=== PATIENT | female | born 1950 | race Caucasian/White ===

== ENCOUNTER 2021-05-08 03:25 | Outpatient (CLI) | payer MEDICARE, OTHER, SELFPAY ==
[2021-05-10 15:55] LABS: TB Interpretation Negative (Negative)
== END 2021-05-08 03:26 | disposition home or self-care (01) ==
LOC: LBO 03:25
PROVIDERS: PCP Nurse Practitioner Family; Visit Provider Student in an Organized Health Care Education/Training Program
DX: R91.8 Other nonspecific abnormal finding of lung field (principal)
CPT/HCPCS: 36415; 86480

== ENCOUNTER 2021-08-14 01:03 | Outpatient (CLI) | payer MEDICARE, SELFPAY ==
--- NOTE | 2021-08-14 07:00 | DI.CT_ITS ---
Exam(s) CT CHEST WO EXAM: CT CHEST WO CLINICAL HISTORY: Previous pulmonary nodules seen at [facility],COPD,R91.8,J44.9. TECHNIQUE: Multi planar reconstructions were performed. CONTRAST MATERIAL: None COMPARISON: No exams were available for comparison FINDINGS: CHEST: LUNGS: There is bilateral hyperinflation. There is scarring in both lung apices and sub apical regio ns, not associated with overlying rib destruction. There is sub apical pleural based densities in th e posterior aspect of both upper lobes, non cavitated and not associated with rib destruction. There is a nodular infiltrate measuring 10 x 9 millimeters in the left lower lobe superior segment. There is a 7 by 7 millimeter nodule contiguous with the anterior aspect of the major fissure in the apical posterior segment of the left upper lobe. Lower down in the left lung there are benign-appearing pl eural based markings in the posterior basal segment of the left lower lobe and in the inferior lingul ar segment. No pleural effusion. In the opposite-right lung there is a small spiculated nodular infiltrate in the superior segment of the right lower lobe measuring 7 x 6 millimeters. Benign-appearing increased markings in the superio r aspect of the superior segment of the right lower lobe are also noted. No other right lung finding s. No pleural effusion. There are no significant focal findings in the trachea and mainstem bronchi. MEDIASTINUM: There is a moderate size retrocardiac hiatal hernia. There is no obvious hilar nor medi astinal adenopathy. Visualized thyroid unremarkable.No obvious axillary adenopathy CARDIAC: Heart size is normal. There is a small pericardial effusion anteriorly. Maximum thickness of the pericardial effusion is 7 millimeters.There is no coronary artery calcification. Caliber of t thoracic aorta is within normal limits. VISUALIZED UPPER ABDOMEN:No adrenal masses. No splenomegaly. Small 4 millimeter calcification noted in the lateral cortex of the left kidney upper pole region, probably a nonobstructive calculus. The entire kidneys are not included in the field of view here. OSSEOUS: No significant osseous lesions.. IMPRESSION: 1. Significant bilateral lung findings as described above, not associated with pleural effusions nor obvious intrathoracic adenopathy. The next step should be to acquire the prior outside study for com parison purposes. An addendum will follow if these are received. Nevertheless, close follow-up of t [facility] findings is recommended. RADIATION DOSE DELIVERED: 345.7mGy.cm Total DLP DATA REPOSITORY: All CT scans at this facility are submitted to the National Radiology Data Registry (NRDR) Dose Index Registry (DIR) with the [employer] ([employer]). RADIATION OPTIMIZATION: All CT scans at this facility use at least one of these dose optimization te chniques: automated exposure control; mA and/or kV adjustment per patient size (includes targeted exa ms where dose is matched to clinical indication); or iterative reconstruction.
== END 2021-08-14 01:23 ==
PROVIDERS: PCP Nurse Practitioner Family; Visit Provider Student in an Organized Health Care Education/Training Program
DX: J44.9 Chronic obstructive pulmonary disease, unspecified (principal); R91.8 Other nonspecific abnormal finding of lung field
CPT/HCPCS: 71250

== ENCOUNTER → 2023-09-09 09:31 | Outpatient (BNVA) | payer MEDICARE, SELFPAY | PROVIDERS: Visit Provider Physician Assistant Surgical | DX: J44.9 Chronic obstructive pulmonary disease, unspecified (principal); Z79.51 Long term (current) use of inhaled steroids; Z79.899 Other long term (current) drug therapy; R91.8 Other nonspecific abnormal finding of lung field; Z87.891 Personal history of nicotine dependence | CPT/HCPCS: 99214 ==

== ENCOUNTER → 2023-12-10 07:39 | Outpatient (BNVA) | payer MEDICARE, SELFPAY | PROVIDERS: Visit Provider Physician Assistant Surgical | DX: J44.9 Chronic obstructive pulmonary disease, unspecified (principal); R91.8 Other nonspecific abnormal finding of lung field; R53.83 Other fatigue | CPT/HCPCS: 99214 ==

== ENCOUNTER 2023-12-10 09:56 | Outpatient (CLI) | payer MEDICARE, SELFPAY ==
[2023-12-10 08:53] LABS: Abs Immature Grans 0.02 10^3/uL (0.0-0.06); Absolute Basophil Count 0.06 10^3/uL (0.0-0.2); Absolute Eosinophil Count 0.13 10^3/uL (0.0-0.7); Absolute Lymphocyte Count 1.41 10^3/uL (1.2-3.4); Absolute Monocyte Count 0.54 10^3/uL (0.1-0.8); Basophils % 0.7; Eosinophils % 1.5; HCT 39.5 % (36.0-46.0); HGB 12.3 g/dL (11.2-15.7); Immature Grans % 0.2; Lymphocytes % 16.7; MCH 27.5 pg (27.0-33.0); MCHC 31.1 % (32.0-36.0); MCV 88 fL (80-95); MPV 8.4 fL (8.0-11.0); Monocytes % 6.4; Neutrophils % 74.5; Platelet Count 387 10^3/uL (130-400); RBC 4.48 10^6/uL (3.93-5.22); RDW 15.8 % (11.7-14.6); RDW-SD 51.2 fL; WBC 8.46 10^3/uL (4.4-10.8)
[2023-12-10 09:18] LABS: ALT 15 U/L (14-59); AST 15 U/L (15-37); Albumin 3.3 g/dL (3.4-5.0); Alkaline Phosphatase 89 U/L (46-116); Anion Gap 9.3 mmol/L (3-11); BUN 7 mg/dL (7-18); Bilirubin, Total 0.4 mg/dL (0.2-1.0); CO2 29.7 mmol/L (21.0-32.0); CREATININE 0.9 mg/dL (0.55-1.02); Calcium 10.3 mg/dL (8.5-10.1); Chloride 103 mmol/L (98-107); Estimated GFR 68.35 (mL/min/1.73m2); Glucose 124 mg/dL (74-106); Magnesium 1.9 mg/dL (1.8-2.4); Potassium 3.8 mmol/L (3.5-5.1); Sodium 142 mmol/L (136-145); TSH (W/Ref FT4) 1.69 uIU/mL (0.36-3.74); Total Protein 7.8 g/dL (6.4-8.2)
== END 2023-12-10 09:57 | disposition home or self-care (01) ==
LOC: LBO 10:01
PROVIDERS: Visit Provider Physician Assistant Surgical
DX: J44.9 Chronic obstructive pulmonary disease, unspecified (principal); R53.83 Other fatigue
CPT/HCPCS: 36415; 80053; 99214; 83735; 84443; 85025

== ENCOUNTER 2023-12-24 03:18 | Outpatient (CLI) | payer MEDICARE, SELFPAY ==
[2023-12-24] MEDS: Levalbuterol HFA 15 GM INH 4 PUFF IH (14:12)
[2023-12-24] MEDS: Inhaler, Assist Device 1 EACH MC (14:12)
--- NOTE | 2023-12-24 14:46 | W.PFT ---
Date of service: 12/24/23 Time of Service: 12:43 Pulmonary Function Test Result Indications: COPD Interpretation Spirometry: There is very severe airflow limitation. No bronchodilator response. FVC is low. Lung Volumes: There is hyperinflation and air trapping Diffusion Capacity: Unable to perform DLCO due to dyspnea Airway Pressure: Increased airways resistance Impression Very severe airflow obstruction. FVC is low due to severe obstruction. There is air trapping present. Clinical Correlation therefore is recommended.
--- NOTE | 2023-12-25 11:10 | W.PFT ---
Pulmonary Function Test Result Clinical Correlation therefore is recommended.
== END 2023-12-24 03:19 | disposition home or self-care (01) ==
LOC: RT 03:18
PROVIDERS: Visit Provider Student in an Organized Health Care Education/Training Program
DX: J44.9 Chronic obstructive pulmonary disease, unspecified (principal)
CPT/HCPCS: 94060; 94726

== ENCOUNTER → 2024-02-11 08:30 | Outpatient (BNVA) | payer MEDICARE, SELFPAY | PROVIDERS: Referring Provider Physician Assistant Medical; Visit Provider Student in an Organized Health Care Education/Training Program | DX: J44.9 Chronic obstructive pulmonary disease, unspecified (principal); R91.8 Other nonspecific abnormal finding of lung field | CPT/HCPCS: 94618; 99214 ==

== ENCOUNTER → 2024-07-13 08:39 | Outpatient (BNVA) | payer MEDICARE, SELFPAY | PROVIDERS: Visit Provider Physician Assistant Surgical | DX: J44.9 Chronic obstructive pulmonary disease, unspecified (principal); R91.8 Other nonspecific abnormal finding of lung field | CPT/HCPCS: 99214 ==

== ENCOUNTER → 2024-10-11 09:34 | Outpatient (BNVA) | payer MEDICARE, SELFPAY | PROVIDERS: Visit Provider Physician Assistant Surgical | DX: J44.9 Chronic obstructive pulmonary disease, unspecified (principal); R91.8 Other nonspecific abnormal finding of lung field; J96.11 Chronic respiratory failure with hypoxia; Z29.11 Encounter for prophylactic immunotherapy for respiratory syncytial virus (RSV); Z23 Encounter for immunization | CPT/HCPCS: 90380; 90661; 90679; 94618; 96381; 99214; G0008 ==

== ENCOUNTER → 2025-01-10 08:04 | Outpatient (BNVA) | payer MEDICARE, SELFPAY | PROVIDERS: Visit Provider Physician Assistant Surgical | DX: J44.9 Chronic obstructive pulmonary disease, unspecified (principal); R91.8 Other nonspecific abnormal finding of lung field; J96.11 Chronic respiratory failure with hypoxia | CPT/HCPCS: 94618; 99214 ==

== ENCOUNTER → 2025-05-09 14:33 | Outpatient (BNVA) | payer MEDICARE, SELFPAY | PROVIDERS: Visit Provider Physician Assistant Surgical | DX: J44.9 Chronic obstructive pulmonary disease, unspecified (principal); R91.8 Other nonspecific abnormal finding of lung field; J96.11 Chronic respiratory failure with hypoxia; Z87.891 Personal history of nicotine dependence | CPT/HCPCS: 99214 ==

== ENCOUNTER → 2025-08-10 08:46 | Outpatient (BNVA) | payer MEDICARE, SELFPAY | PROVIDERS: Visit Provider Physician Assistant Surgical | DX: J44.9 Chronic obstructive pulmonary disease, unspecified (principal); R91.8 Other nonspecific abnormal finding of lung field; J96.11 Chronic respiratory failure with hypoxia; Z87.891 Personal history of nicotine dependence | CPT/HCPCS: 99214 ==